=== PATIENT | female | born 1935 | race Caucasian/White ===

== ENCOUNTER → 2016-06-16 | Outpatient (CLI) | payer MEDICARE, OTHER | END | disposition disaster alternative care site (69) | LOC: GRAD 14:20 | PROC: 3E0U33Z Introduction of Anti-inflammatory into Joints, Percutaneous Approach (ICD-10-PCS; principal; 2016-06-16) | PROC: 3E0U3BZ Introduction of Anesthetic Agent into Joints, Percutaneous Approach (ICD-10-PCS; 2016-06-16) | DX: M25.562 Pain in left knee (principal); M17.12 Unilateral primary osteoarthritis, left knee ==

== ENCOUNTER → 2016-07-17 | Outpatient (CLI) | payer MEDICARE, OTHER ==
[2016-07-17 15:53] LABS: CPK 66 IU/L (21-215)
== END ==
LOC: LCNC 15:35
PROVIDERS: Internal Medicine Interventional Cardiology
DX: R07.9 Chest pain, unspecified (principal)

== ENCOUNTER → 2016-07-21 | Outpatient (CLI) | payer MEDICARE, OTHER ==
--- NOTE | ~2016-07-21 | ESTC ---
Cardiac Perfusion Imaging Demographics Patient Name JULIO Sarmiento Gender Female Patient Number [id number] Race Visit Number [id number] Ethnicity [employer] ID Room Number Accession Number [id number] Height 64 inches Date of 1935 Weight 134 pounds Interpreting Omid Freitas MD Date of study 07/21/2016 Physician Supervising /MORENITA WEBB Technologist LAN ANALYST Ordering Physician Stress mail technician Stress ECG Reading Citlaly Palacios Nurse Morena Willis Physician LAN ANALYST field education coordinator Procedure Type: Nuclear Stress Test:Cardiolite Stress Test Procedure Start time: 07/21/2016 00:00 Indications: Chest pain. Risk Factors The patient risk factors include:prior PCI on 03/22/2009;former tobacco use. Conclusions Summary Cardiolite SPECT images demonstrate homogenous uptake of radioactive uptake. No evidence of inducible reversible defect and no evidence of underlying fixed defect. Normal TID ratio of 1.10 Normal left ventricular systolic function without inducible wall motion abnormalities. LVEF is 74% Stress Protocols Resting ECG RSR with T wave inversion in lead III, AVF, V3, V4, V5. BBB Resting HR:66 bpm Resting BP:115/56 mmHg Pre-stress physical exam: Patient assessed by Avelina Boucher APRN prior to testing. Stress Protocol:Pharmacologic Peak HR:71 bpm HR response: Appropriate Peak BP:117/57 mmHg BP response: Appropriate Predicted HR: 137 bpm HR/BP product:8307 % of predicted HR: 52 Reason for termination:Infusion complete ECG Findings No ECG changes suggestive of ischemia. Arrhythmias No rhythm abnormality. Symptoms Nausea. Resolved in 2 minutes after Lexiscan infused. Stress Interpretation Appropriate hemodynamic response to Lexiscan. No significant ST-T wave changes with Lexiscan. ECG portion is negative for ischemia by diagnostic criteria. Stress supervision and interpretation provided by Che Boucher APRN . Imaging Results Summed scores - Summed stress score: 4 - Summed rest score: 5 - Summed difference score: -1 Stress ejection Ejection fraction:75 % EDV :71 ml ESV :18 ml Stroke volume :53 ml LV mass :95 gr Imaging Protocols Rest Stress Isotope:Tc99m Sestamibi IV Isotope: Tc99m Sestamibi IV Isotope dose:10.4 mCi Isotope dose:31.9 mCi Date:07/21/2016 07:06 Date:07/21/2016 08:30 Technique: SPECT Technique: Gated Supine SPECT Supine Scan Time:45-60 minutes post Scan Time:45-60 minutes post injection injection Procedure Medications - Regadenoson (Lexiscan) 0.4 mg IV over 10-15 sec. I.V. . Medical History Admission Data Admission date: 07/21/2016 Admission Time: 06:51 Hospital Status: Outpatient. Signatures dtt: Fortino Anne (cardio) dtd: 07/21/16 0000 Physician Self Edit
== END | disposition disaster alternative care site (69) ==
LOC: GRAD 06:51
DX: R07.9 Chest pain, unspecified (principal)
CPT/HCPCS: A9500; J2785